=== PATIENT | male | born 1960 | race Caucasian/White ===

== ENCOUNTER → 2019-12-02 08:23 | Outpatient (CLI) | payer OTHER, SELFPAY ==
[2019-12-04 13:09] LABS: COVID19 Sendout Not Detected (Not Detected)
== END ==
PROVIDERS: Family Provider Family Medicine; PCP Family Medicine; Visit Provider Physician Assistant
DX: Z03.818 Encounter for observation for suspected exposure to other biological agents ruled out (principal)
CPT/HCPCS: 87635

== ENCOUNTER → 2020-08-19 09:44 | Outpatient (CLI) | payer OTHER, SELFPAY ==
[2020-08-19] MEDS: COVID-19 VACC #1, MRNA(MOD) 100 MCG/0.5 ML VIAL IM (09:53)
== END ==
PROVIDERS: Family Provider Family Medicine; PCP Family Medicine; Visit Provider Internal Medicine
DX: Z23 Encounter for immunization (principal)
CPT/HCPCS: 0011A; 91301

== ENCOUNTER → 2020-09-16 09:39 | Outpatient (CLI) | payer OTHER, SELFPAY ==
[2020-09-16] MEDS: COVID-19 VACC #2, MRNA(MOD) 100 MCG/0.5 ML VIAL IM (09:44)
== END ==
PROVIDERS: Family Provider Family Medicine; PCP Family Medicine; Visit Provider Internal Medicine
DX: Z23 Encounter for immunization (principal)
CPT/HCPCS: 0012A; 91301

== ENCOUNTER 2022-01-13 20:04 | Emergency (ER) | payer SELFPAY ==
[2022-01-13 20:07] VITALS: BP 164/83; PULSE 67; RESP 16; TEMP 36.8; O2SAT 98; BMI 29.9
--- NOTE | 2022-01-13 21:24 | ED_ITS ---
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 Approximately 8 weeks ago he had difficulty clearing and suffered a small tympanic membrane rupture. It was feeling much better and he was doing some dieting last week that seemed to go well. Today was diving and had severe pain in the posterior part of his ear and felt small bubbles coming out while he was at depth. He comes in for further evaluation. Does not note any continued pain, purulence drainage, tinnitus or hearing loss. He is having no headaches or fevers. Related Data Home Medications Medication Instructions Recorded Confirmed No Known Home Medications 01/06/22 01/06/22 Allergies Allergy/AdvReac Type Severity Reaction Status Date / Time No Known Drug Allergies Allergy Unverified 01/06/22 11:04 Review of Systems Review of Systems Narrative: Remainder of complete review of systems is otherwise unremarkable except for that included in the HPI. Patient History Medical History Bilateral leg numbness (1995) Decompression sickness (06/1995) History of hyperbaric oxygen therapy (06/1995) Mumps (1967) Pneumonia (09/2006) RLS (restless legs syndrome) (1995) Shoulder pain Sinusitis Stye Tear of medial meniscus of right knee (02/01/07) Surgical History Anesthesia History of hernia repair (06/1995) History of left knee surgery (07/2001) Status post left rotator cuff repair (06/2012) Family History Brother Age: 59 Acute complete quadriplegia Father Age: 86 Heart disease Hypertension High cholesterol Mother Leukemia Arthritis Grandfather Stroke Grandmother Pancreatic cancer Grandfather No problems noted. Sister Obesity Social History Smoking Status: Never smoker Smoking Status: Never smoker alcohol intake frequency: 0-2 drinks per day Substance Use Type: marijuana Exam Initial Vital Signs Initial Vital Signs: Vital Signs Temperature 98.3 F 01/13/22 20:07 Pulse Rate 67 01/13/22 20:07 Respiratory Rate 16 01/13/22 20:07 Blood Pressure 164/83 H 01/13/22 20:07 Pulse Oximetry 98 01/13/22 20:07 Oxygen Delivery Method 01/13/22 20:07 General: Alert appropriate in no acute distress HEENT: Left tympanic membrane has an approximately 3-4 mm area of thickness/scab development at approximately 1:00 a.m. on the tympanic membrane. There is no obvious rupture, hyperemia, bleeding, discharge. There is no posterior or preauricular tenderness and no infection of the helix itself. 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 Went back to diving a bit too soon and has a microscopic leak through the scab. Recommended an additional at least month of healing and further evaluation prior to his next I have to make sure truly appears that is healed. At this point there is no indication for antibiotics and no signs of infection. He is safe for home discharge Discharge Plan Departure Patient Disposition: Home Clinical Impression: Rupture of left tympanic membrane Instructions: Ruptured Eardrum Activity Restrictions/Additional Instructions: Thank you for coming in tonight Your tympanic membrane is healing but has not completely healed. I would recommend at least another month before you try diving again. At this time there is no evidence for infection either external canal, tympanic membrane itself, middle portion of the ear or bone or tissue behind the ear Prior to your next dive, I would recommend that you have somebody look at her tympanic membrane and make sure that it visually appears completely healed. A know that it is challenging to avoid getting in the water but a couple of extra weeks of healing at this time will help you maintain a lifetime of diving. If you find that you are getting worse or develop any new symptoms, please feel free to return to the emergency department for further evaluation. Prescriptions: No Action No Known Home Medications Referrals: Mejia Vila MD [Primary Care Provider] -
== END 2022-01-13 21:49 | disposition home or self-care (01) ==
PROVIDERS: Emergency Provider Emergency Medicine; Family Provider Family Medicine; PCP Family Medicine
DX: H72.92 Unspecified perforation of tympanic membrane, left ear (principal)
CPT/HCPCS: 99281

== ENCOUNTER → 2024-02-06 09:43 | Outpatient (CLI) | payer OTHER, SELFPAY ==
[2024-02-06 10:32] LABS: Add Manual Diff / Slide Review NO; Basophils Absolute Auto 0 /uL (0-100); Eosinophils Absolute Auto 300 /uL (0-450); Eosinophils Percent Auto 6.2 % (2-4); Hematocrit 46.3 % (41-53); Hemoglobin 15.5 g/dL (13.5-17.5); Lymphocytes Absolute Auto 1900 /uL (1100-4500); Lymphocytes Percent Auto 39.1 % (25-40); Mean Corpuscular HGB Conc 33.5 % (30-36); Mean Corpuscular Hemoglobin 31.9 PG (26-34); Mean Corpuscular Volume 95.3 fL (80-100); Monocytes Absolute Auto 600 /uL (0-900); Monocytes Percent Auto 11.3 % (3-14); Neutrophils Absolute Auto 2100 /uL (1500-7000); Neutrophils Percent Auto 42.4 % (50-75); Platelet Count 205 X10^3/uL (150-400); Red Blood Cell Count 4.86 X10^6/uL (4.5-5.9); Red Cell Distribution Width 12.8 % (11.6-14.8); White Blood Cell Count 4.9 X10^3/uL (4.5-11.0)
[2024-02-06 11:01] LABS: Alanine Aminotransferase 34 IU/L (<50); Albumin 4.1 g/dL (3.5-5.0); Albumin Globulin Ratio 1.4 (1.0-2.8); Alkaline Phosphatase 53 U/L (38-126); Aspartate Aminotransferase 37 IU/L (17-59); BUN Creatinine Ratio 24.5 (6-22); Bilirubin Total 0.7 mg/dL (0.2-1.3); Blood Urea Nitrogen 23 mg/dL (9-20); Carbon Dioxide 28 mmol/L (22-32); Chloride 103 mmol/L (98-107); Cholesterol 186 mg/dL (140-199); Estimated Glomerular Filt Rate > 60 mL/min (>60); Globulin 2.9 g/dL (1.7-4.1); Glucose 95 mg/dL (80-110); HDL Cholesterol 61 mg/dL (40-60); HEMOLYSIS < 15 (0-50); LDL Cholesterol Calculated 113 mg/dL (<100); Potassium 4.5 mmol/L (3.4-5.1); Sodium 137 mmol/L (137-145); Triglycerides 62 mg/dL (35-150)
[2024-02-06 11:30] LABS: Prostate Specific Antigen 0.765 ng/mL (0.10-4.00)
== END ==
LOC: LAB 09:44
PROVIDERS: Family Provider Family Medicine; PCP Family Medicine; Referring Provider Family Medicine; Visit Provider Family Medicine
DX: Z00.00 Encounter for general adult medical examination without abnormal findings (principal)
CPT/HCPCS: 36415; 80053; 80061; 84153; 85025